=== PATIENT | male | born 1995 | race Two or more races ===

== ENCOUNTER → 2022-04-23 | Emergency (ER) | payer MEDICAID | END | disposition left against medical advice (07) | LOC: ER 19:59 | DX: R04.0 Epistaxis (principal); Z53.21 Procedure and treatment not carried out due to patient leaving prior to being seen by health care provider; W51.XXXA Accidental striking against or bumped into by another person, initial encounter; Y93.89 Activity, other specified; Y92.89 Other specified places as the place of occurrence of the external cause; Y99.8 Other external cause status ==